=== PATIENT | male | born 1955 | race Caucasian/White ===

== ENCOUNTER → 2018-03-26 | Outpatient (CLI) | payer OTHER ==
--- NOTE | 2018-03-26 15:58 | Diagnostic Imaging Report ---
Right knee MRI without contrast. History: Knee pain. Meniscus tear. Decreased range of motion. Comparison: None. Technique: Multiplanar multi-sequence MRI of the knee without contrast. Findings: Medial compartment: There is a complex displaced medial meniscus tear involving the posterior horn and body segments. Meniscal tissue is displaced to the periphery. There are regions of full-thickness articular cartilage loss in the medial compartment with underlying bone marrow edema. There are peripheral marginal osteophytes. The medial collateral ligament complex is intact. Lateral compartment: No meniscal tear or cartilage abnormality. The LCL complex is normal. Intercondylar notch: The ACL and PCL are intact. Patellofemoral compartment: There is mild articular cartilage fraying and fissuring in the patellofemoral compartment. There are small peripheral marginal osteophytes. Extensor mechanism: The quadriceps and patellar tendons are normal. Other findings: There is a joint effusion and synovitis. There is no acute fracture, subluxation or avascular necrosis. IMPRESSION: Complex displaced medial meniscus tear with advanced degenerative arthrosis in the medial compartment of the knee. Joint effusion and synovitis. Signed by: Dr. Florencio Ibrahim M.D. on 03/26/2018 3:55 PM
== END | disposition home or self-care (01) ==
LOC: MRI 13:22
PROVIDERS: ATTEND Specialist
DX: S83.231A Complex tear of medial meniscus, current injury, right knee, initial encounter (principal); M17.11 Unilateral primary osteoarthritis, right knee; X58.XXXA Exposure to other specified factors, initial encounter

== ENCOUNTER → 2019-02-10 | Day surgery (SDC) | payer OTHER ==
[2019-02-09 11:25] LABS: ANION GAP 14.3 mmol/L (8-16); BLOOD UREA NITROGEN 29 mg/dL (7-26); BUN/CREATININE RATIO 26 (6-25); CALCIUM 10.2 mg/dL (8.4-10.2); CARBON DIOXIDE 27 mmol/L (22-29); CHLORIDE 98 mmol/L (98-107); CREATININE, SERUM 1.11 mg/dL (0.72-1.25); EST GLOMERULAR FILTRATION RATE > 60 ML/MIN (60-); GLUCOSE 97 mg/dL (74-118); POTASSIUM 4.3 mmol/L (3.5-5.1); SODIUM 135 mmol/L (136-145)
[~2019-02-10] MED LIST: ACETAMINOPHEN 1000 MG/100 ML 100 ML IV ONE; BUPIVACAINE 0.5%/EPI 30 ML SDV INJ ONE; CEFAZOLIN SOD 2 GM/D5W 50ML 50 ML IV ONE; DEXAMETHASONE SOD PHOS INJ 4 MG/ML VIAL ONE; FENTANYL CITRATE/PF 100MCG/2 ML INJ ONE; FUROSEMIDE40 MG PO; IBUPROFEN200 MG PO; KETOROLAC TROMETHAMINE 30 MG/ML VIAL ONE; LIDOCAINE HCL 2% LOCAL INJ 5 ML SDV VIAL INJ ONE; METAXALONE800 MG PO; MIDAZOLAM HCL 2 MG/2 ML VIAL ONE; NAPROXEN500 MG PO; ONDANSETRON HCL INJ 2MG/ML 2ML 2 MG/ML VIAL ONE; PROPOFOL IV EMULSION 10 MG/ML 20 ML VIAL ONE; SEVOFLURANE INHAL SOLN 250 ML PEN BTL ONE
--- OUTSIDE RECORDS SUMMARY | 2019-02-10 05:18 | XMS REPORT ---
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 Allergies, Adverse Reactions, Alerts This patient has no known allergies or adverse reactions. Medications This patient has no known medications. Results Test Description Test Time Test Comments Text Results Atomic Results Result Comments MRI RIGHT KNEE WO 2018-03-26 15:52:00 [place] [address] Patient Name: ALONDRA OSORIO MR #: [id number] : 1955 Age/Sex: 62/M Req #: [id number] [facility] Physician: Ordered by: NATALY LEMUS MD Report #: [id number] Location: MRI Room/Bed: Procedure: [id number] MRI/MRI RIGHT KNEE WO Exam Date: Exam Time: REPORT STATUS: Signed Right knee MRI without contrast. History: Knee pain. Meniscus tear. Decreased range of motion. Comparison: None. Technique: Multiplanar multi- sequence MRI of the knee without contrast. Findings: Medial compartment: There is a complex displaced medial meniscus tear involving the posterior horn and body segments. Meniscal tissue is displaced to the periphery. There are regions of full-thickness articular cartilage loss in the medial compartment with underlying bone marrow edema. There are peripheral marginal osteophytes. The medial collateral ligament complex is intact. Lateral compartment: No meniscal tear or cartilage abnormality. The LCL complex is normal. Intercondylar notch: The ACL and PCL are intact. Patellofemoral compartment: There is mild articular cartilage fraying and fissuring in the patellofemoral compartment. There are small peripheral marginal osteophytes. Extensor mechanism: The quadriceps and patellar tendons are normal. Other findings: There is a joint effusion and synovitis. There is no acute fracture, subluxation or avascular necrosis. IMPRESSION: Complex displaced medial meniscus tear with advanced degenerative arthrosis in the medial compartment of the knee. Joint effusion and synovitis. Signed by: Dr. Florencio Ibrahim M.D. on 03/26/2018 3:55 PM Dictated By: FLORENCIO IBRAHIM MD, MD [id number] Transcribed By: TREVIN on 03/26/18 3054 COPY TO: NATALY LEMUS MD
[2019-02-10 09:15] VITALS: BP 103/56
--- NOTE | 2019-02-10 18:16 | Operative Report ---
DATE OF PROCEDURE: 02/10/2019 SURGEON: Flako Brush MD PREOPERATIVE DIAGNOSES: Left knee medial meniscus tear, left knee degenerative joint disease of the knee. POSTOPERATIVE DIAGNOSES: Left knee medial meniscus tear, left knee degenerative joint disease of the knee. OPERATIONS AND PROCEDURE PERFORMED: The patient underwent a left knee examination under anesthesia, left knee arthroscopy, left knee partial medial meniscectomy, left knee chondroplasty of the patella, the trochlea, the medial femoral condyle, medial tibial plateau, the lateral femoral condyle and lateral tibial plateau. RELAY SHOP SUPERVISOR: Eden Hernandez. ANESTHESIA: General endotracheal intubation anesthesia. IV FLUIDS: Per anesthesia record. BRIEF DISCUSSION OF THE PATIENT'S OPERATIVE PROCEDURE: Mr. Acuña was taken to the operating room, placed in the supine position on the operating table. Following induction of general anesthesia as well as the endotracheal intubation, the patient's left lower extremity was examined under anesthesia. He was found to have a mild effusion within the knee joint, but otherwise ligamentously stable knee. The patient's lower extremities were prepped and draped in standard surgical fashion. A two port technique was used to provide this patient arthroscopic evaluation of the knee joint. Examination of suprapatellar pouch, medial and lateral gutters found no evidence of loose bodies. 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 The scope was then advanced to medial compartment and a medial meniscus tear was encountered. There was also chondromalacia of the articulating surfaces. A combination of biting forceps and a motorized shaver were used to resect the torn portion of meniscus. Chondroplasties of the medial femoral condyle and medial tibial plateau were performed at this time. Scope was then advanced to the intercondylar notch and the anterior cruciate ligament. Ligament was identified and found to be intact. The scope was passed into the lateral compartment and chondromalacia of the articulating surfaces were encountered. A chondroplasty of the lateral femoral condyle and lateral tibial plateau was performed at this time. Scope was then advanced in the suprapatellar pouch and chondroplasties of the patella and trochlea were performed. The knee was deflated with sterile normal saline. The portal sites were closed using 4-0 nylon suture. Portal sites were then injected with 0.5% Marcaine with epinephrine. The knee was deflated of its sterile normal saline. Portal sites were closed. Sterile dressings were applied. The patient was awakened and taken to the postanesthesia care unit in stable condition. MD KULWANT Arredondo/TRENT /[id number]
== END | disposition home or self-care (01) ==
LOC: OR 05:08
PROVIDERS: ATTEND Specialist
DX: S83.222A Peripheral tear of medial meniscus, current injury, left knee, initial encounter (principal); M22.42 Chondromalacia patellae, left knee; M17.12 Unilateral primary osteoarthritis, left knee; I10 Essential (primary) hypertension; F17.290 Nicotine dependence, other tobacco product, uncomplicated; X58.XXXA Exposure to other specified factors, initial encounter; Z68.30 Body mass index [BMI] 30.0-30.9, adult
CPT/HCPCS: 29881; 36415; 80048; 93005; J0131; J0690; J1100; J1885; J2001; J2250; J2405; J2704